=== PATIENT | female | born 1970 | race Two or more races ===

== ENCOUNTER 2024-02-07 19:31 | Emergency (ER) | payer OTHER ==
[~2024-02-07] VITALS: Ht 152.4 cm; Wt 50.0 kg
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
[2024-02-07] MEDS: ACETAMINOPHEN 325 MG TAB PO ONE (23:12)
[2024-02-07 23:32] VITALS: BP 152/89; PULSE 94; RESP 20; TEMP 97.3; O2SAT 94
== END 2024-02-07 23:35 | disposition home or self-care (01) ==
LOC: EDBD 19:31 → ER 19:31
DX: S20.219A Contusion of unspecified front wall of thorax, initial encounter (principal); I10 Essential (primary) hypertension; V89.2XXA Person injured in unspecified motor-vehicle accident, traffic, initial encounter; Y93.I9 Activity, other involving external motion; Y92.488 Other paved roadways as the place of occurrence of the external cause; Y99.8 Other external cause status
CPT/HCPCS: 71046